=== PATIENT | male | born 1965 | race Caucasian/White ===

== ENCOUNTER 2016-10-26 19:14 | Emergency (ER) | payer MEDICARE ==
[~2016-10-26] VITALS: Ht 175.3 cm; Wt 51.3 kg
[2016-10-26] MEDS ORDERED: OXYcodone/APAP 5/325MG TABLET ONE (20:49)
[2016-10-26] MEDS ORDERED: METHOCARBAMOL 750 MG TABLET ONE (20:49)
[2016-10-26] MEDS ORDERED: METHOCARBAMOL 750 MG TABLET PO ONE (21:00)
[2016-10-26] MEDS ORDERED: OXYcodone/APAP 5/325MG TABLET PO ONE (21:00)
[2016-10-26 21:57] VITALS: BP 146/101
== END 2016-10-26 21:59 | disposition home or self-care (01) ==
LOC: ED 21:53
DX: S39.012A Strain of muscle, fascia and tendon of lower back, initial encounter (principal); M79.642 Pain in left hand; M47.896 Other spondylosis, lumbar region; I10 Essential (primary) hypertension; W18.30XA Fall on same level, unspecified, initial encounter; Y93.89 Activity, other specified; Y92.89 Other specified places as the place of occurrence of the external cause; Y99.9 Unspecified external cause status
CPT/HCPCS: 72110; 99284

== ENCOUNTER 2016-11-23 22:16 | Emergency (ER) | payer MEDICARE ==
[~2016-11-23] VITALS: Ht 177.8 cm; Wt 75.0 kg
[2016-11-23 22:17] VITALS: BP 127/84
[2016-11-23] MEDS ORDERED: KETOROLAC 30 MG/1 ML ONE (23:19)
[2016-11-23] MEDS ORDERED: KETOROLAC 30 MG/1 ML IM ONE (23:30)
== END 2016-11-23 23:36 | disposition home or self-care (01) ==
LOC: ED 23:30
DX: S32.019A Unspecified fracture of first lumbar vertebra, initial encounter for closed fracture (principal); I10 Essential (primary) hypertension; W18.30XA Fall on same level, unspecified, initial encounter; Y93.89 Activity, other specified; Y92.89 Other specified places as the place of occurrence of the external cause; Y99.9 Unspecified external cause status
CPT/HCPCS: 96372; 99283; J1885